=== PATIENT | male | born 1930 | race Caucasian/White ===

== ENCOUNTER 2017-01-06 07:12 | Emergency (ER) | payer OTHER ==
[2017-01-06 07:54] LABS: BASOPHIL 0.5 % (0-2); EOSINOPHIL 2.4 % (0-7); HCT 44.6 % (42.0-52.0); HGB 14.8 g/dl (13.2-18.0); LYMPHOCYTE 34.9 % (15-48); MCH 31.3 pg (25.0-31.0); MCHC 33.2 g/dL (32.0-36.0); MCV 94.3 fL (78.0-100.0); MONOCYTE 7.3 % (0-12); MPV 9.7 fL (6.0-9.5); NEUTROPHIL 54.9 % (41-80); PLT 199 K/uL (150-400); RBC 4.73 M/uL (4.70-6.00); RDW 13.8 % (11.5-14.0)
[2017-01-06 08:00] LABS: ALBUMIN 4.7 g/dL (3.4-4.8); BILIRUBIN - TOTAL 1.2 mg/dL (0.1-1.0); CREATININE 1.2 mg/dL (0.7-1.2); POTASSIUM 3.8 mmol/L (3.5-5.1); TOTAL PROTEIN 6.7 g/dL (6.4-8.3)
[2017-01-06 08:57] LABS: INR 2.74 (0.9-1.2); PROTHROMBIN TIME 28.3 SECONDS (11.7-14.0); PTT 28.6 SECONDS (23.2-31.4)
== END 2017-01-06 16:38 | disposition other institution (70) ==
LOC: FER 07:12
PROVIDERS: Internal Medicine
DX: K40.90 Unilateral inguinal hernia, without obstruction or gangrene, not specified as recurrent (principal); I25.10 Atherosclerotic heart disease of native coronary artery without angina pectoris; I48.91 Unspecified atrial fibrillation; Z95.2 Presence of prosthetic heart valve
CPT/HCPCS: 36415; 74000; 80053; 83690; 84484; 85025; 85610; 85730; 86900; 86901; 93005; 96372; J1170; J2405